=== PATIENT | female | born 1955 | race Two or more races ===

== ENCOUNTER 2018-04-07 19:26 | Emergency (ER) | payer MEDICARE, MEDICAID ==
[~2018-04-07] VITALS: Ht 167.6 cm; Wt 113.0 kg
[2018-04-08] MEDS ORDERED: SODIUM CHLORIDE 0.9% 1,000 ML IV ONE (06:45)
[2018-04-08] MEDS ORDERED: ONDANSETRON HCL 4MG/2ML INJ IV ONE (06:45)
[2018-04-08] MEDS ORDERED: MORPHINE SULFATE 4 MG/ML CPJ (NOT FOR IM USE) IV ONE (07:00)
[2018-04-08 07:16] LABS: CHLORIDE 102 mEq/L (98-107)
[2018-04-08 07:20] LABS: ETHANOL BLOOD < 10 mg/dL
[2018-04-08 07:22] LABS: HEMOGLOBIN. 11.1 g/dL (12.0-16.0); MEAN CORPUSCULAR HEMOGLOBIN 26.4 pg (28.0-32.0); PLATELET 122 x1000/uL (130-400); RED BLOOD CELL COUNT 4.22 mill/uL (4.2-5.4)
[2018-04-08 07:26] LABS: INR 1.1; PROTHROMBIN TIME 11.4 sec (9.1-11.1)
[2018-04-08] MEDS ORDERED: METOPROLOL TARTRATE 5MG/5ML VIAL IV ONE (07:30)
[2018-04-08 07:33] LABS: CLARITY URINE CLOUDY (CLEAR); COLOR URINE YELLOW (YELLOW); KETONES URINE NEGATIVE (NEGATIVE); LEUKOCYTE ESTERASE URINE 3+ (NEGATIVE); NITRITE URINE NEGATIVE (NEGATIVE); OCCULT BLOOD URINE NEGATIVE (NEGATIVE); PROTEIN URINE 1+ (NEGATIVE); SPECIFIC GRAVITY URINE 1.025 (1.005-1.030); UROBILINOGEN URINE 0.2 E.U./dL (0.2-1.0)
[2018-04-08 07:41] VITALS: BP 182/75
[2018-04-08 07:59] LABS: PLATELET ESTIMATE SLIGHTLY DECREASED
[2018-04-08 08:21] LABS: CANNABINOID URINE SCREEN NEGATIVE (NEGATIVE); METHADONE URINE SCREEN NEGATIVE (NEGATIVE); OPIATES URINE SCREEN NEGATIVE (NEGATIVE); PHENCYCLIDINE URINE SCREEN NEGATIVE (NEGATIVE)
[2018-04-08 08:22] LABS: *AMPHETAMINES SCREEN URINE NEGATIVE (NEGATIVE); *BARBITURATES SCREEN URINE NEGATIVE (NEGATIVE); *BENZODIAZEPINES SCREEN URINE NEGATIVE (NEGATIVE); *COCAINE SCREEN URINE NEGATIVE (NEGATIVE)
== END 2018-04-08 08:59 | disposition home or self-care (01) ==
LOC: ER 19:26
DX: N39.0 Urinary tract infection, site not specified (principal); E11.9 Type 2 diabetes mellitus without complications; I11.9 Hypertensive heart disease without heart failure; E78.00 Pure hypercholesterolemia, unspecified; Z95.0 Presence of cardiac pacemaker; Z94.0 Kidney transplant status
CPT/HCPCS: 36415; 80053; 80305; 80320; 81003; 83690; 85025; 85610; 87086; 96361; 96374; 96375; 99283; J2270; J2405; J3490; J7030; G0480

== ENCOUNTER 2018-08-10 09:05 | Emergency (ER) | payer MEDICARE, MEDICAID ==
[~2018-08-10] VITALS: Ht 162.6 cm; Wt 116.0 kg
[2018-08-10] MEDS ORDERED: FUROSEMIDE 40MG/4ML VIAL IV ONE (09:30)
[2018-08-10 09:53] LABS: EOSINOPHILS % 2.9 % (0.0-5.0); HEMATOCRIT. 37.5 % (36.0-48.0); LYMPHOCYTES % 32.8 % (20.0-50.0); MEAN CORPUSCULAR HEMOGLOBIN 26.9 pg (28.0-32.0); MEAN CORPUSCULAR VOLUME 83.8 fL (81.0-99.0); MEAN PLATELET VOLUME 9.6 fl (7.4-10.4); NEUTROPHILS % 54.3 % (40.0-76.0); PLATELET 171 x1000/uL (130-400); RED BLOOD CELL COUNT 4.47 mill/uL (4.2-5.4); RED CELL DISTRIBUTION WIDTH 14.9 % (11.6-14.6)
[2018-08-10 10:01] LABS: CHLORIDE 103 mEq/L (98-107); INR 1.2; PARTIAL THROMBOPLASTIN TIME 32.7 sec (23.4-31.0); PROTHROMBIN TIME 11.9 sec (9.6-11.0)
[2018-08-10] MEDS ORDERED: HYDROCODONE/ACETAMINOPHEN 5/325MG TABLET PO ONE (10:15)
[2018-08-10 10:47] LABS: CLARITY URINE CLEAR (CLEAR); COLOR URINE YELLOW (YELLOW); KETONES URINE NEGATIVE (NEGATIVE); LEUKOCYTE ESTERASE URINE TRACE (NEGATIVE); NITRITE URINE NEGATIVE (NEGATIVE); OCCULT BLOOD URINE 1+ (NEGATIVE); PH URINE 5.5 (4.5-8.0); PROTEIN URINE NEGATIVE (NEGATIVE); SPECIFIC GRAVITY URINE 1.015 (1.005-1.030); UROBILINOGEN URINE 0.2 E.U./dL (0.2-1.0)
[2018-08-10] MEDS ORDERED: POTASSIUM CHLORIDE 20MEQ TABLET SR PO ONE (11:45)
[2018-08-10 13:47] VITALS: BP 141/62
== END 2018-08-10 13:52 | disposition home or self-care (01) ==
LOC: ER 09:15
DX: M54.41 Lumbago with sciatica, right side (principal); R60.0 Localized edema; I11.0 Hypertensive heart disease with heart failure; I50.9 Heart failure, unspecified; I48.91 Unspecified atrial fibrillation; E78.5 Hyperlipidemia, unspecified
CPT/HCPCS: 36415; 71045; 80053; 81003; 83880; 84484; 85025; 85610; 85730; 93005; 93970; 96374; 99284; J1940

== ENCOUNTER 2020-10-21 13:34 | Emergency (ER) | payer OTHER, MEDICAID ==
[~2020-10-21] VITALS: Ht 165.1 cm; Wt 103.0 kg
[2020-10-21 13:39] VITALS: BP 145/74
[2020-10-21] MEDS ORDERED: IBUPROFEN 600MG TABLET PO ONE (14:15)
[2020-10-21] MEDS ORDERED: ACETAMINOPHEN 325MG TABLET PO ONE (14:30)
[2020-10-21] MEDS ORDERED: TOPUD MT (15:04)
== END 2020-10-21 15:16 | disposition home or self-care (01) ==
LOC: ER 13:34
DX: M79.675 Pain in left toe(s) (principal); I11.0 Hypertensive heart disease with heart failure; I50.9 Heart failure, unspecified; I48.91 Unspecified atrial fibrillation; J40 Bronchitis, not specified as acute or chronic; Z94.0 Kidney transplant status; Z95.0 Presence of cardiac pacemaker
CPT/HCPCS: 73660; 81025; 82962; 99283

== ENCOUNTER 2021-06-15 08:43 | Emergency (ER) | payer MEDICARE, MEDICAID ==
[~2021-06-15] VITALS: Ht 165.1 cm; Wt 77.0 kg
[~2021-06-15 08:43] MED LIST: TOPUD MT
[2021-06-15 09:53] LABS: BASOPHILS % 0.7 % (0.0-2.0); EOSINOPHILS % 1.7 % (0.0-5.0); HEMATOCRIT. 37.7 % (36.0-48.0); HEMOGLOBIN. 12.1 g/dL (12.0-16.0); LYMPHOCYTES % 31.5 % (20.0-50.0); MEAN CORPUSCULAR HEMOGLOBIN 26.2 pg (28.0-32.0); MEAN CORPUSCULAR VOLUME 81.5 fL (81.0-99.0); MEAN PLATELET VOLUME 9.3 fl (7.4-10.4); MONOCYTES % 9.1 % (2.0-8.0); PLATELET 185 x1000/uL (130-400); RED BLOOD CELL COUNT 4.62 mill/uL (4.2-5.4); RED CELL DISTRIBUTION WIDTH 14.7 % (11.6-14.6)
[2021-06-15 10:02] LABS: CHLORIDE 104 mEq/L (98-107)
[2021-06-15] MEDS ORDERED: ACETAMINOPHEN 500MG TABLET PO ONE (11:00)
[2021-06-15] MEDS ORDERED: IOHEXOL-350 100 ML BOTTLE ONE (11:13)
[2021-06-15 12:00] VITALS: BP 150/72
[2021-06-15] MEDS ORDERED: TOPUD MT (12:05)
== END 2021-06-15 12:59 | disposition home or self-care (01) ==
LOC: ER 08:43
DX: M54.2 Cervicalgia (principal); M79.89 Other specified soft tissue disorders; I11.0 Hypertensive heart disease with heart failure; I50.9 Heart failure, unspecified; E11.9 Type 2 diabetes mellitus without complications; Z94.0 Kidney transplant status; Z87.448 Personal history of other diseases of urinary system
CPT/HCPCS: 36415; 70496; 70498; 80048; 85025; 99284; Q9967

== ENCOUNTER 2021-08-06 08:55 | Emergency (ER) | payer MEDICARE ==
[~2021-08-06] VITALS: Ht 167.6 cm; Wt 100.0 kg
[2021-08-06] MEDS ORDERED: ACETAMINOPHEN WITH CODEINE 300/30MG TABLET PO STA (09:19)
[2021-08-06 10:12] LABS: CHLORIDE 106 mEq/L (98-107)
[2021-08-06 10:15] LABS: BASOPHILS % 0.4 % (0.0-2.0); EOSINOPHILS % 1.8 % (0.0-5.0); HEMOGLOBIN. 11.1 g/dL (12.0-16.0); LYMPHOCYTES % 45.5 % (20.0-50.0); MEAN CORPUSCULAR HEMOGLOBIN 25.9 pg (28.0-32.0); MEAN CORPUSCULAR VOLUME 81.6 fL (81.0-99.0); NEUTROPHILS % 43.3 % (40.0-76.0); PLATELET 170 x1000/uL (130-400); RED BLOOD CELL COUNT 4.29 mill/uL (4.2-5.4); RED CELL DISTRIBUTION WIDTH 14.7 % (11.6-14.6)
[2021-08-06 10:51] LABS: CLARITY URINE CLEAR (CLEAR); COLOR URINE YELLOW (YELLOW); KETONES URINE NEGATIVE (NEGATIVE); LEUKOCYTE ESTERASE URINE TRACE (NEGATIVE); NITRITE URINE NEGATIVE (NEGATIVE); OCCULT BLOOD URINE TRACE (NEGATIVE); PROTEIN URINE NEGATIVE (NEGATIVE); SPECIFIC GRAVITY URINE 1.016 (1.005-1.030); UROBILINOGEN URINE 0.2 E.U./dL (0.2-1.0)
[2021-08-06] MEDS ORDERED: T3 PO (11:13)
[2021-08-06] MEDS ORDERED: CEPH500C2 MT ×2 (11:13)
[2021-08-06] MEDS ORDERED: CEPH500T MT (11:17)
[2021-08-06 11:29] VITALS: BP 116/59
== END 2021-08-06 11:35 | disposition home or self-care (01) ==
LOC: ER 08:55
DX: N12 Tubulo-interstitial nephritis, not specified as acute or chronic (principal); I48.91 Unspecified atrial fibrillation; I11.0 Hypertensive heart disease with heart failure; I50.9 Heart failure, unspecified; E78.00 Pure hypercholesterolemia, unspecified; Z95.0 Presence of cardiac pacemaker
CPT/HCPCS: 36415; 80053; 81003; 85025; 99283

== ENCOUNTER 2021-12-28 08:57 | Emergency (ER) | payer MEDICARE, MEDICAID ==
[~2021-12-28] VITALS: Ht 167.6 cm; Wt 80.0 kg
[~2021-12-28 08:57] MED LIST changes: +CEPH500T MT; +T3 PO
[2021-12-28 10:24] LABS: BASOPHILS % 0.6 % (0.0-2.0); HEMATOCRIT. 33.6 % (36.0-48.0); HEMOGLOBIN. 10.8 g/dL (12.0-16.0); LYMPHOCYTES % 24.8 % (20.0-50.0); MEAN CORPUSCULAR HEMOGLOBIN 26.1 pg (28.0-32.0); MEAN CORPUSCULAR VOLUME 80.9 fL (81.0-99.0); MEAN PLATELET VOLUME 9.9 fl (7.4-10.4); MONOCYTES % 7.8 % (2.0-8.0); NEUTROPHILS % 62.8 % (40.0-76.0); PLATELET 189 x1000/uL (130-400); RED BLOOD CELL COUNT 4.15 mill/uL (4.2-5.4); RED CELL DISTRIBUTION WIDTH 15.4 % (11.6-14.6)
[2021-12-28 10:33] LABS: INR 1.2; PROTHROMBIN TIME 12.6 sec (9.6-11.0)
[2021-12-28 10:36] LABS: CHLORIDE 105 mEq/L (98-107)
[2021-12-28] MEDS ORDERED: ACET-2708 MT (11:35)
[2021-12-28] MEDS ORDERED: ACETAMINOPHEN 325MG TABLET PO ONE (12:00)
[2021-12-28 12:01] VITALS: BP 150/78
== END 2021-12-28 14:15 | disposition home or self-care (01) ==
LOC: ER 08:57
DX: R04.0 Epistaxis (principal)
CPT/HCPCS: 36415; 71045; 80053; 85025; 99284

== ENCOUNTER 2022-01-24 09:43 | Inpatient (IN) | payer MEDICARE ==
[~2022-01-24] VITALS: Ht 165.1 cm; Wt 100.3 kg
[~2022-01-24 09:43] MED LIST changes: +ACET-2708 MT
[2022-01-24 10:55] LABS: CHLORIDE 99 mEq/L (98-107)
[2022-01-24] MEDS ORDERED: CEFTRIAXONE 1 G PREMIX 50 ML IV ONE (11:45)
[2022-01-24] MEDS ORDERED: AZITHROMYCIN 500MG/250ML 250 ML IV ONE (11:45)
[2022-01-24] MEDS ORDERED: SODIUM CHLORIDE 0.9% 1000ML BAG (SEPSIS BOLUS) IV ONE (11:45)
[2022-01-24 11:58] LABS: HEMATOCRIT. 33.8 % (36.0-48.0); HEMOGLOBIN. 10.7 g/dL (12.0-16.0); MEAN CORPUSCULAR HEMOGLOBIN 25.6 pg (28.0-32.0); MEAN CORPUSCULAR VOLUME 80.8 fL (81.0-99.0); MEAN PLATELET VOLUME 9.2 fl (7.4-10.4); PLATELET 150 x1000/uL (130-400); RED BLOOD CELL COUNT 4.18 mill/uL (4.2-5.4); RED CELL DISTRIBUTION WIDTH 14.5 % (11.6-14.6)
[2022-01-24] MEDS ORDERED: ACETAMINOPHEN 325MG TABLET PO ONE (12:00)
[2022-01-24] MEDS ORDERED: POTASSIUM CHLORIDE 20MEQ TABLET SR PO ONE (12:00)
[2022-01-24 12:01] LABS: BG BASE EXCESS 1.7 mmol/L (-2.0-2.0); BG CARBOXYHEMOGLOBIN 0.4 % (0.5-1.5); BG DEOXYHEMOGLOBIN 16.8 % (0.0-5.0); BG HCO3 ACT 24.5 mmol/L (22.0-26.0); BG OXYGEN SATURATION 83.1 % (92.0-98.5); BG OXYHEMOGLOBIN 82.8 % (94.0-97.0); BG PCO2 32.5 mmHg (35.0-45.0); BG PH 7.495 (7.350-7.450); BG PO2 45.3 mmHg (75.0-100.0); BG SAMPLE SITE RIGHT BRACHIAL; BG TOTAL HEMOGLOBIN 12.2 g/dL (12.0-18.0); BG VENT MODE NASAL CANNULA
[2022-01-24 12:20] LABS: PLATELET ESTIMATE NORMAL
[2022-01-24] MEDS ORDERED: FUROSEMIDE 40MG/4ML VIAL IVP NR (14:15)
[2022-01-24] MEDS ORDERED: ONDANSETRON HCL 4MG/2ML INJ IV PRN (14:15)
[2022-01-24] MEDS ORDERED: PIPERACILLIN/TAZ 3.375G PREMIX 50 ML IV SCH (14:30)
[2022-01-24 18:00] VITALS: BP 122/73
[2022-01-24 20:00] VITALS: BP 141/77
[2022-01-24] MEDS: IPRATROPIUM/ALBUTEROL 0.5-3(2.5)MG/3ML NEB HHN SCH (20:44)
[2022-01-24 20:58] LABS: BG BASE EXCESS 0.6 mmol/L (-2.0-2.0); BG CARBOXYHEMOGLOBIN 0.3 % (0.5-1.5); BG DEOXYHEMOGLOBIN 1.3 % (0.0-5.0); BG FRACTION INSPIRED OXYGEN 100; BG METHEMOGLOBIN 0.4 % (0.0-1.5); BG OXYGEN SATURATION 98.7 % (92.0-98.5); BG PCO2 39.3 mmHg (35.0-45.0); BG PH 7.422 (7.350-7.450); BG PO2 138.6 mmHg (75.0-100.0); BG SAMPLE SITE LEFT RADIAL; BG TOTAL HEMOGLOBIN 11.3 g/dL (12.0-18.0); BG VENT MODE MASK - BIPAP
[2022-01-24 22:00] VITALS: BP 162/78
[2022-01-25] VITALS (12 sets, daily range): BP systolic 119–160; BP diastolic 56–90
[2022-01-25] MEDS: IPRATROPIUM/ALBUTEROL 0.5-3(2.5)MG/3ML NEB HHN SCH ×4 (01:56→21:43)
[2022-01-25] MEDS ORDERED: PIPERACILLIN/TAZOBACTAM 3.375 G in DEXTROSE 5% WATER 50 ML IV SCH (06:00)
[2022-01-25 08:08] LABS: HEMATOCRIT. 34.1 % (36.0-48.0); HEMOGLOBIN. 10.8 g/dL (12.0-16.0); MEAN CORPUSCULAR HEMOGLOBIN 25.4 pg (28.0-32.0); MEAN CORPUSCULAR VOLUME 80.4 fL (81.0-99.0); MEAN PLATELET VOLUME 9.8 fl (7.4-10.4); PLATELET 144 x1000/uL (130-400); RED BLOOD CELL COUNT 4.24 mill/uL (4.2-5.4); RED CELL DISTRIBUTION WIDTH 15.1 % (11.6-14.6)
[2022-01-25] MEDS ORDERED: POTASSIUM CHLORIDE 20MEQ TABLET SR PO NR (09:30)
[2022-01-25] MEDS ORDERED: CALCIUM GLUCONATE 100MG/ML 10ML VIAL IV NR (10:00)
[2022-01-25] MEDS ORDERED: TACR0.5C4 PO (10:02)
[2022-01-25] MEDS ORDERED: LOSA50TA41 MT (10:58)
[2022-01-25] MEDS ORDERED: DIGO125T80 MT (10:58)
[2022-01-25] MEDS ORDERED: ASPI-1406 MT (10:58)
[2022-01-25] MEDS ORDERED: MYCO250C PO (10:58)
[2022-01-25] MEDS ORDERED: METF500T60 PO (10:58)
[2022-01-25] MEDS ORDERED: AMLO10TA80 MT (10:58)
[2022-01-25] MEDS ORDERED: PRED-276 MT (10:58)
[2022-01-25] MEDS ORDERED: ATOR40TA70 MT (10:58)
[2022-01-25] MEDS ORDERED: RIVA20TA MT (10:58)
[2022-01-25] MEDS ORDERED: CALC0.253 PO (10:58)
[2022-01-25] MEDS: AMLODIPINE 10MG TABLET PO SCH (11:16)
[2022-01-25 11:58] LABS: PLATELET ESTIMATE NORMAL
[2022-01-25] MEDS: PIPERACILLIN/TAZOBACTAM 3.375 G in DEXTROSE 5% WATER 50 ML IV SCH ×2 (14:59→22:00)
[2022-01-25] MEDS: RIVAROXABAN 20 MG TABLET PO SCH (17:29)
[2022-01-25] MEDS: ATORVASTATIN CALCIUM 40MG TABLET PO SCH (20:36)
[2022-01-25] MEDS: MYCOPHENOLATE MOFETIL 250MG CAPSULE PO SCH (20:36)
[2022-01-26] VITALS (7 sets, daily range): BP systolic 102–138; BP diastolic 46–74
[2022-01-26] MEDS: ACETAMINOPHEN 325MG TABLET PO PRN ×3 (01:43→17:09)
[2022-01-26] MEDS: IPRATROPIUM/ALBUTEROL 0.5-3(2.5)MG/3ML NEB HHN SCH ×4 (02:57→20:30)
[2022-01-26] MEDS: PIPERACILLIN/TAZOBACTAM 3.375 G in DEXTROSE 5% WATER 50 ML IV SCH ×3 (06:10→22:00)
[2022-01-26 06:43] LABS: HEMATOCRIT. 30.7 % (36.0-48.0); HEMOGLOBIN. 9.7 g/dL (12.0-16.0); MEAN CORPUSCULAR HEMOGLOBIN 25.3 pg (28.0-32.0); MEAN CORPUSCULAR VOLUME 80.3 fL (81.0-99.0); MEAN PLATELET VOLUME 9.7 fl (7.4-10.4); PLATELET 114 x1000/uL (130-400); RED BLOOD CELL COUNT 3.83 mill/uL (4.2-5.4); RED CELL DISTRIBUTION WIDTH 14.9 % (11.6-14.6)
[2022-01-26] MEDS ORDERED: POTASSIUM CHLORIDE 20MEQ TABLET SR PO NR ×2 (08:30→17:45)
[2022-01-26] MEDS ORDERED: POTASSIUM CHLORIDE INJ 40 MEQ in DEXT 5% WATER 250 ML IV ONE (08:30)
[2022-01-26] MEDS: LOSARTAN POTASSIUM 50 MG TABLET PO SCH (09:07)
[2022-01-26] MEDS: AMLODIPINE 10MG TABLET PO SCH (09:07)
[2022-01-26] MEDS: MYCOPHENOLATE MOFETIL 250MG CAPSULE PO SCH ×2 (09:07→20:24)
[2022-01-26] MEDS: KCL 20MEQ/100ML X 2 FOR TOTAL KCL 40MEQ/200ML IV SCH ×2 (09:55→11:21)
[2022-01-26 13:14] LABS: PLATELET ESTIMATE DECREASED
[2022-01-26] MEDS: RIVAROXABAN 20 MG TABLET PO SCH (16:52)
[2022-01-26] MEDS: ATORVASTATIN CALCIUM 40MG TABLET PO SCH (20:24)
[2022-01-27] VITALS (11 sets, daily range): BP systolic 103–163; BP diastolic 49–89
[2022-01-27] MEDS: IPRATROPIUM/ALBUTEROL 0.5-3(2.5)MG/3ML NEB HHN SCH ×4 (00:20→20:20)
[2022-01-27 06:27] LABS: BASOPHILS % 0.3 % (0.0-2.0); EOSINOPHILS % 2.6 % (0.0-5.0); HEMATOCRIT. 25.7 % (36.0-48.0); HEMOGLOBIN. 8.2 g/dL (12.0-16.0); LYMPHOCYTES % 11.8 % (20.0-50.0); MEAN CORPUSCULAR HEMOGLOBIN 25.4 pg (28.0-32.0); MEAN CORPUSCULAR VOLUME 79.5 fL (81.0-99.0); MEAN PLATELET VOLUME 10.1 fl (7.4-10.4); MONOCYTES % 6.5 % (2.0-8.0); NEUTROPHILS % 78.8 % (40.0-76.0); PLATELET 117 x1000/uL (130-400); RED BLOOD CELL COUNT 3.23 mill/uL (4.2-5.4)
[2022-01-27] MEDS: PIPERACILLIN/TAZOBACTAM 3.375 G in DEXTROSE 5% WATER 50 ML IV SCH ×3 (06:40→21:16)
[2022-01-27 07:00] LABS: CHLORIDE 104 mEq/L (98-107)
[2022-01-27] MEDS: LOSARTAN POTASSIUM 50 MG TABLET PO SCH (09:01)
[2022-01-27] MEDS: MYCOPHENOLATE MOFETIL 250MG CAPSULE PO SCH ×2 (09:01→21:17)
[2022-01-27] MEDS: AMLODIPINE 10MG TABLET PO SCH (09:01)
[2022-01-27] MEDS ORDERED: CALCIUM GLUCONATE 1,000 MG in DEXT 5% WATER 90 ML IV ONE (10:15)
[2022-01-27] MEDS: ACETAMINOPHEN 325MG TABLET PO PRN (10:49)
[2022-01-27] MEDS ORDERED: CALCIUM GLUCONATE 1GM PREMIX 50 ML IV NR (11:30)
[2022-01-27] MEDS: PREDNISONE 5MG TABLET PO SCH (11:42)
[2022-01-27] MEDS ORDERED: PREDNISONE 20MG TABLET PO SCH (12:00)
[2022-01-27] MEDS: RIVAROXABAN 20 MG TABLET PO SCH (16:11)
[2022-01-27] MEDS: ATORVASTATIN CALCIUM 40MG TABLET PO SCH (21:17)
[2022-01-27] MEDS ORDERED: BENZONATATE 100MG CAPSULE PO PRN (22:15)
[2022-01-27] MEDS ORDERED: IPRATROPIUM BROMIDE (0.02%) 0.5MG/2.5ML NEB HHN PRN (22:15)
[2022-01-28] VITALS (11 sets, daily range): BP systolic 126–161; BP diastolic 56–79
[2022-01-28] MEDS: IPRATROPIUM/ALBUTEROL 0.5-3(2.5)MG/3ML NEB HHN SCH ×4 (01:51→21:55)
[2022-01-28] MEDS: PIPERACILLIN/TAZOBACTAM 3.375 G in DEXTROSE 5% WATER 50 ML IV SCH ×3 (05:14→21:25)
[2022-01-28 06:29] LABS: BASOPHILS % 0.4 % (0.0-2.0); EOSINOPHILS % 2.5 % (0.0-5.0); HEMATOCRIT. 27.8 % (36.0-48.0); HEMOGLOBIN. 8.9 g/dL (12.0-16.0); LYMPHOCYTES % 21.4 % (20.0-50.0); MEAN CORPUSCULAR HEMOGLOBIN 25.6 pg (28.0-32.0); MEAN CORPUSCULAR VOLUME 79.8 fL (81.0-99.0); MEAN PLATELET VOLUME 9.8 fl (7.4-10.4); MONOCYTES % 10.7 % (2.0-8.0); PLATELET 145 x1000/uL (130-400); RED BLOOD CELL COUNT 3.48 mill/uL (4.2-5.4); RED CELL DISTRIBUTION WIDTH 15.3 % (11.6-14.6)
[2022-01-28] MEDS: PREDNISONE 5MG TABLET PO SCH (09:11)
[2022-01-28] MEDS: MYCOPHENOLATE MOFETIL 250MG CAPSULE PO SCH ×2 (09:11→21:25)
[2022-01-28] MEDS: LOSARTAN POTASSIUM 50 MG TABLET PO SCH (09:11)
[2022-01-28] MEDS: AMLODIPINE 10MG TABLET PO SCH (09:12)
[2022-01-28] MEDS: RIVAROXABAN 20 MG TABLET PO SCH (17:20)
[2022-01-28] MEDS: CALCIUM CARBONATE 500MG TABLET CHEW PO SCH (17:20)
[2022-01-28] MEDS: ATORVASTATIN CALCIUM 40MG TABLET PO SCH (21:25)
[2022-01-29] VITALS (7 sets, daily range): BP systolic 118–133; BP diastolic 60–83
[2022-01-29] MEDS: PIPERACILLIN/TAZOBACTAM 3.375 G in DEXTROSE 5% WATER 50 ML IV SCH ×2 (05:53→14:17)
[2022-01-29] MEDS: MYCOPHENOLATE MOFETIL 250MG CAPSULE PO SCH ×2 (09:36→21:25)
[2022-01-29] MEDS: PREDNISONE 5MG TABLET PO SCH (09:36)
[2022-01-29] MEDS: LOSARTAN POTASSIUM 50 MG TABLET PO SCH (09:36)
[2022-01-29] MEDS: CALCIUM CARBONATE 500MG TABLET CHEW PO SCH ×3 (09:36→17:56)
[2022-01-29] MEDS: AMLODIPINE 10MG TABLET PO SCH (09:36)
[2022-01-29] MEDS: IPRATROPIUM/ALBUTEROL 0.5-3(2.5)MG/3ML NEB HHN SCH ×3 (09:44→21:15)
[2022-01-29] MEDS: RIVAROXABAN 20 MG TABLET PO SCH (16:35)
[2022-01-29] MEDS: ATORVASTATIN CALCIUM 40MG TABLET PO SCH (21:25)
[2022-01-30] VITALS (7 sets, daily range): BP systolic 120–145; BP diastolic 61–76
[2022-01-30] MEDS: IPRATROPIUM/ALBUTEROL 0.5-3(2.5)MG/3ML NEB HHN SCH ×4 (02:15→20:36)
[2022-01-30] MEDS: MYCOPHENOLATE MOFETIL 250MG CAPSULE PO SCH ×2 (09:10→21:55)
[2022-01-30] MEDS: PREDNISONE 5MG TABLET PO SCH (09:11)
[2022-01-30] MEDS: CALCIUM CARBONATE 500MG TABLET CHEW PO SCH ×3 (09:11→17:26)
[2022-01-30] MEDS: LOSARTAN POTASSIUM 50 MG TABLET PO SCH (09:11)
[2022-01-30] MEDS: AMLODIPINE 10MG TABLET PO SCH (09:11)
[2022-01-30] MEDS: PIPERACILLIN/TAZOBACTAM 3.375 G in DEXTROSE 5% WATER 50 ML IV SCH ×2 (13:06→21:55)
[2022-01-30] MEDS: RIVAROXABAN 20 MG TABLET PO SCH (17:27)
[2022-01-30 19:52] LABS: BASOPHILS % 0.3 % (0.0-2.0); EOSINOPHILS % 0.8 % (0.0-5.0); HEMOGLOBIN. 8.7 g/dL (12.0-16.0); LYMPHOCYTES % 11.4 % (20.0-50.0); MEAN CORPUSCULAR HEMOGLOBIN 25.6 pg (28.0-32.0); MEAN CORPUSCULAR VOLUME 79.2 fL (81.0-99.0); MONOCYTES % 13.9 % (2.0-8.0); NEUTROPHILS % 73.6 % (40.0-76.0); PLATELET 237 x1000/uL (130-400)
[2022-01-30 20:01] LABS: CHLORIDE 100 mEq/L (98-107)
[2022-01-30] MEDS: ATORVASTATIN CALCIUM 40MG TABLET PO SCH (21:55)
[2022-01-31] MEDS: IPRATROPIUM/ALBUTEROL 0.5-3(2.5)MG/3ML NEB HHN SCH ×3 (02:14→13:57)
[2022-01-31] MEDS: PIPERACILLIN/TAZOBACTAM 3.375 G in DEXTROSE 5% WATER 50 ML IV SCH ×2 (06:38→13:19)
[2022-01-31 08:00] VITALS: BP 128/68
[2022-01-31] MEDS: MYCOPHENOLATE MOFETIL 250MG CAPSULE PO SCH (09:52)
[2022-01-31] MEDS: LOSARTAN POTASSIUM 50 MG TABLET PO SCH (09:52)
[2022-01-31] MEDS: CALCIUM CARBONATE 500MG TABLET CHEW PO SCH ×2 (09:52→13:19)
[2022-01-31] MEDS: PREDNISONE 5MG TABLET PO SCH (09:52)
[2022-01-31] MEDS: AMLODIPINE 10MG TABLET PO SCH (09:53)
[2022-01-31 12:00] VITALS: BP 132/76
[2022-01-31 13:31] VITALS: BP 137/73
[2022-01-31 16:00] VITALS: BP 141/72
[2022-01-31] MEDS: RIVAROXABAN 20 MG TABLET PO SCH (16:31)
== END 2022-01-31 19:09 | DRG 871 ==
LOC: ER 09:43 → EDBEDREQTM 13:44 → EDBEDREQSVC 13:44 → EDBEDREQ 13:44 → 5EST 13:44 → ENRESERV 16:11
PROVIDERS: ADMIT Internal Medicine; ATTEND Internal Medicine
PROC: 5A09357 Assistance with Respiratory Ventilation, Less than 24 Consecutive Hours, Continuous Positive Airway Pressure (ICD-10-PCS; principal; 2022-01-24)
PROC: 5A09357 Assistance with Respiratory Ventilation, Less than 24 Consecutive Hours, Continuous Positive Airway Pressure (ICD-10-PCS; 2022-01-27)
DX: A41.9 Sepsis, unspecified organism (principal); J18.9 Pneumonia, unspecified organism; J96.01 Acute respiratory failure with hypoxia; E87.1 Hypo-osmolality and hyponatremia; E44.0 Moderate protein-calorie malnutrition; N17.9 Acute kidney failure, unspecified; D84.9 Immunodeficiency, unspecified; Z94.0 Kidney transplant status; E87.20 Acidosis, unspecified; R65.20 Severe sepsis without septic shock; E87.6 Hypokalemia; D64.9 Anemia, unspecified; E66.9 Obesity, unspecified; E11.9 Type 2 diabetes mellitus without complications; I11.0 Hypertensive heart disease with heart failure; I50.9 Heart failure, unspecified; E78.00 Pure hypercholesterolemia, unspecified; M19.90 Unspecified osteoarthritis, unspecified site; Z20.822 Contact with and (suspected) exposure to COVID-19; I48.91 Unspecified atrial fibrillation; Z68.36 Body mass index [BMI] 36.0-36.9, adult
CPT/HCPCS: 36415; 36600; 71045; 80048; 80053; 82375; 82805; 83605; 83880; 84132; 84145; 84484; 85025; 87070; 87426; 93005; 93306; 94640; 94660; 97116; 97162; 97530; 99285; C9803; J0456; J0610; J0696; J1940; J2405; J2543; J3480; J7030; J7060; J7512; J7517

== ENCOUNTER 2022-05-11 11:29 | Emergency (ER) | payer MEDICARE, MEDICAID ==
[~2022-05-11] VITALS: Ht 167.6 cm; Wt 102.0 kg
[~2022-05-11 11:29] MED LIST changes: +AMLO10TA80 MT; +ASPI-1406 MT; +ATOR40TA70 MT; +CALC0.253 PO; +DIGO125T80 MT; +LOSA50TA41 MT; +METF500T60 PO; +MYCO250C PO; +PRED-855 MT; +RIVA20TA MT; +TACR0.5C4 PO
[2022-05-11 13:20] LABS: BASOPHILS % 0.4 % (0.0-2.0); HEMATOCRIT. 34.1 % (36.0-48.0); HEMOGLOBIN. 11.1 g/dL (12.0-16.0); LYMPHOCYTES % 17.7 % (20.0-50.0); MEAN CORPUSCULAR HEMOGLOBIN 25.1 pg (28.0-32.0); MEAN CORPUSCULAR VOLUME 77.4 fL (81.0-99.0); MEAN PLATELET VOLUME 8.9 fl (7.4-10.4); MONOCYTES % 8.6 % (2.0-8.0); NEUTROPHILS % 70.3 % (40.0-76.0); PLATELET 202 x1000/uL (130-400); RED BLOOD CELL COUNT 4.41 mill/uL (4.2-5.4); RED CELL DISTRIBUTION WIDTH 15.7 % (11.6-14.6)
[2022-05-11 13:22] LABS: CHLORIDE 99 mEq/L (98-107)
[2022-05-11 13:27] LABS: D-DIMER 0.25 mg/L FEU (<0.50); INR 1.2; PROTHROMBIN TIME 12.7 sec (9.6-11.0)
[2022-05-11 13:34] LABS: BETA HYDROXYBUTYRATE 0.1 mMol/L (0.0-0.3)
[2022-05-11] MEDS ORDERED: SODIUM CHLORIDE 0.9% 1,000 ML IV ONE (14:15)
[2022-05-11] MEDS ORDERED: MAGNESIUM 2 G PREMIX 50 ML IV NR (14:45)
[2022-05-11] MEDS ORDERED: POTASSIUM CHLORIDE 20MEQ TABLET SR PO NR (14:45)
[2022-05-11 16:10] VITALS: BP 146/71
== END 2022-05-11 16:58 | disposition home or self-care (01) ==
LOC: ER 11:29
DX: R06.02 Shortness of breath (principal); I48.91 Unspecified atrial fibrillation; I11.0 Hypertensive heart disease with heart failure; I50.9 Heart failure, unspecified; E11.9 Type 2 diabetes mellitus without complications; Z95.0 Presence of cardiac pacemaker; Z20.822 Contact with and (suspected) exposure to COVID-19
CPT/HCPCS: 36415; 71045; 80053; 82010; 83605; 83735; 83880; 84145; 84484; 85025; 85379; 85610; 87426; 87804; 93005; 96365; 99285; C9803; J3475

== ENCOUNTER 2022-05-31 10:21 | Emergency (ER) | payer MEDICARE, MEDICAID ==
[~2022-05-31] VITALS: Ht 165.1 cm; Wt 104.0 kg
[2022-05-31 10:41] VITALS: BP 136/70
[2022-05-31 11:29] LABS: BASOPHILS % 0.8 % (0.0-2.0); EOSINOPHILS % 6.8 % (0.0-5.0); HEMATOCRIT. 34.3 % (36.0-48.0); HEMOGLOBIN. 11.2 g/dL (12.0-16.0); LYMPHOCYTES % 23.9 % (20.0-50.0); MEAN CORPUSCULAR HEMOGLOBIN 25.4 pg (28.0-32.0); MEAN CORPUSCULAR VOLUME 77.9 fL (81.0-99.0); MEAN PLATELET VOLUME 8.5 fl (7.4-10.4); MONOCYTES % 13.6 % (2.0-8.0); NEUTROPHILS % 54.9 % (40.0-76.0); PLATELET 201 x1000/uL (130-400); RED BLOOD CELL COUNT 4.41 mill/uL (4.2-5.4); RED CELL DISTRIBUTION WIDTH 15.4 % (11.6-14.6)
[2022-05-31 11:35] LABS: CHLORIDE 100 mEq/L (98-107)
== END 2022-05-31 17:04 | disposition home or self-care (01) ==
LOC: ER 10:21
DX: E83.51 Hypocalcemia (principal)
CPT/HCPCS: 36415; 71045; 80053; 85025; 93005; 99285

== ENCOUNTER 2023-02-14 12:27 | Emergency (ER) | payer MEDICARE, MEDICAID ==
[~2023-02-14] VITALS: Ht 167.6 cm; Wt 86.0 kg
[~2023-02-14 12:27] MED LIST changes: -ACET-2708 MT; +ALEN70TA79 PO; +BEMP180T PO; -CALC0.253 PO; +CARV3.1242 PO; -CEPH500T MT; -DIGO125T80 MT; +FURO20TA4 PO; -LOSA50TA41 MT; +METF-414 PO; -METF500T60 PO; -RIVA20TA MT; -T3 PO; -TOPUD MT
[2023-02-14 12:28] VITALS: BP 171/86; PULSE 117; RESP 20; TEMP 98.2; O2SAT 99
[2023-02-14] MEDS ORDERED: IBUP-2029 MT ×2 (14:26)
[2023-02-14] MEDS ORDERED: METH-653 MT (14:26)
[2023-02-14] MEDS ORDERED: TRAM50TA3 MT (14:29)
== END 2023-02-14 16:29 | disposition home or self-care (01) ==
LOC: ER 12:33
DX: S76.012A Strain of muscle, fascia and tendon of left hip, initial encounter (principal); I73.9 Peripheral vascular disease, unspecified; E78.00 Pure hypercholesterolemia, unspecified; E11.9 Type 2 diabetes mellitus without complications; I11.0 Hypertensive heart disease with heart failure; I50.9 Heart failure, unspecified; Z79.899 Other long term (current) drug therapy; Z98.890 Other specified postprocedural states; X58.XXXA Exposure to other specified factors, initial encounter; Y93.89 Activity, other specified; Y92.89 Other specified places as the place of occurrence of the external cause; Y99.8 Other external cause status
CPT/HCPCS: 73502; 99283

== ENCOUNTER 2023-02-28 09:57 | Emergency (ER) | payer MEDICARE, MEDICAID ==
[~2023-02-28] VITALS: Ht 167.6 cm; Wt 86.0 kg
[~2023-02-28 09:57] MED LIST changes: +METH-653 MT; +TRAM50TA3 MT
[2023-02-28 10:00] VITALS: BP 203/122; PULSE 112; RESP 20; O2SAT 98
[2023-02-28 11:23] LABS: BASOPHILS % 0.4 % (0.0-2.0); EOSINOPHILS % 2.2 % (0.0-5.0); HEMATOCRIT. 38.1 % (36.0-48.0); LYMPHOCYTES % 17.9 % (20.0-50.0); MEAN CORPUSCULAR HEMOGLOBIN 25.6 pg (28.0-32.0); MEAN CORPUSCULAR HGB CONC 31.5 g/dL (31.0-37.0); MEAN CORPUSCULAR VOLUME 81.2 fL (81.0-99.0); MEAN PLATELET VOLUME 8.7 fl (7.4-10.4); MONOCYTES % 8.2 % (2.0-8.0); NEUTROPHILS % 71.3 % (40.0-76.0); PLATELET 221 x1000/uL (130-400); RED CELL DISTRIBUTION WIDTH 15.3 % (11.6-14.6); WHITE BLOOD COUNT 10.2 x1000/uL (4.5-11.0)
[2023-02-28 11:25] LABS: CLARITY URINE CLEAR (CLEAR); COLOR URINE YELLOW (YELLOW); GLUCOSE URINE NEGATIVE (NEGATIVE); KETONES URINE NEGATIVE (NEGATIVE); LEUKOCYTE ESTERASE URINE TRACE (NEGATIVE); NITRITE URINE NEGATIVE (NEGATIVE); OCCULT BLOOD URINE TRACE (NEGATIVE); PROTEIN URINE TRACE (NEGATIVE); SPECIFIC GRAVITY URINE 1.018 (1.005-1.030); UROBILINOGEN URINE 0.2 E.U./dL (0.2-1.0)
[2023-02-28 11:36] LABS: ALANINE AMINOTRANSFERASE < 7 IU/L (10-49); ALBUMIN 4.1 g/dL (3.2-4.8); ASPARTATE AMINOTRANSFERASE 13 IU/L (<34); BILIRUBIN TOTAL 0.6 mg/dL (0.1-1.0); CALCIUM 8.2 mg/dL (8.7-10.4); CARBON DIOXIDE 25 mEq/L (21-32); CHLORIDE 107 mEq/L (98-107); CREATININE 1.1 mg/dL (0.6-1.0); GLUCOSE 87 mg/dL (70-105); POTASSIUM 3.8 mEq/L (3.5-5.1); PROTEIN TOTAL 7.6 g/dL (6.0-8.3); SODIUM 139 mEq/L (136-145); UREA NITROGEN BLOOD 16 mg/dL (9-23)
[2023-02-28 11:58] LABS: BACTERIA URINE TRACE; SQUAMOUS EPITHELIAL CELL URINE 1+ /lpf (RARE/1+)
[2023-02-28 11:59] LABS: RBC URINE 0-2 /hpf (0-2); WBC URINE 0-2 /hpf (0-2)
[2023-02-28 12:30] VITALS: TEMP 98.6
[2023-02-28] MEDS ORDERED: ACETAMINOPHEN 500MG TABLET PO ONE (12:30)
== END 2023-02-28 13:56 | disposition home or self-care (01) ==
LOC: ER 09:57
DX: M79.652 Pain in left thigh (principal); E11.9 Type 2 diabetes mellitus without complications; I11.0 Hypertensive heart disease with heart failure; I50.9 Heart failure, unspecified; I48.91 Unspecified atrial fibrillation; Z79.899 Other long term (current) drug therapy; Z79.82 Long term (current) use of aspirin; E78.00 Pure hypercholesterolemia, unspecified
CPT/HCPCS: 36415; 80053; 81003; 85025; 99283

== ENCOUNTER 2023-04-04 09:36 | Emergency (ER) | payer MEDICARE, MEDICAID ==
[~2023-04-04] VITALS: Ht 157.5 cm; Wt 100.0 kg
[2023-04-04 09:47] VITALS: O2SAT 100
[2023-04-04 10:25] LABS: BASOPHILS % 0.4 % (0.0-2.0); EOSINOPHILS % 2.7 % (0.0-5.0); HEMOGLOBIN. 12.8 g/dL (12.0-16.0); LYMPHOCYTES % 33.4 % (20.0-50.0); MEAN CORPUSCULAR HEMOGLOBIN 26.3 pg (28.0-32.0); MEAN CORPUSCULAR HGB CONC 32.8 g/dL (31.0-37.0); MEAN CORPUSCULAR VOLUME 80.2 fL (81.0-99.0); MEAN PLATELET VOLUME 8.6 fl (7.4-10.4); MONOCYTES % 8.6 % (2.0-8.0); NEUTROPHILS % 54.9 % (40.0-76.0); PLATELET 221 x1000/uL (130-400); RED BLOOD CELL COUNT 4.86 mill/uL (4.2-5.4); RED CELL DISTRIBUTION WIDTH 14.8 % (11.6-14.6); WHITE BLOOD COUNT 7.9 x1000/uL (4.5-11.0)
[2023-04-04 10:34] LABS: ALANINE AMINOTRANSFERASE < 7 IU/L (10-49); ALBUMIN 4.5 g/dL (3.2-4.8); ASPARTATE AMINOTRANSFERASE 13 IU/L (<34); BILIRUBIN TOTAL 0.7 mg/dL (0.1-1.0); CALCIUM 9.1 mg/dL (8.7-10.4); CARBON DIOXIDE 30 mEq/L (21-32); CHLORIDE 102 mEq/L (98-107); CREATININE 1.2 mg/dL (0.6-1.0); GLUCOSE 102 mg/dL (70-105); POTASSIUM 3.7 mEq/L (3.5-5.1); PROTEIN TOTAL 7.3 g/dL (6.0-8.3); SODIUM 138 mEq/L (136-145); UREA NITROGEN BLOOD 16 mg/dL (9-23)
[2023-04-04 11:05] LABS: CLARITY URINE CLOUDY (CLEAR); COLOR URINE YELLOW (YELLOW); GLUCOSE URINE NEGATIVE (NEGATIVE); KETONES URINE TRACE (NEGATIVE); LEUKOCYTE ESTERASE URINE 3+ (NEGATIVE); NITRITE URINE NEGATIVE (NEGATIVE); OCCULT BLOOD URINE 1+ (NEGATIVE); PH URINE 5.5 (4.5-8.0); PROTEIN URINE 1+ (NEGATIVE); SPECIFIC GRAVITY URINE 1.022 (1.005-1.030); UROBILINOGEN URINE 0.2 E.U./dL (0.2-1.0)
[2023-04-04 11:53] LABS: SQUAMOUS EPITHELIAL CELL URINE 3+ /lpf (RARE/1+)
[2023-04-04 11:54] LABS: WBC URINE 25-50 /hpf (0-2)
[2023-04-04 11:55] LABS: BACTERIA URINE 4+
[2023-04-04] MEDS: ONDANSETRON HCL 4MG/2ML INJ IV STA (14:22)
[2023-04-04] MEDS: MORPHINE SULFATE 2 MG/ML CPJ (NOT FOR IM USE) IV ONE (14:23)
[2023-04-04] MEDS: SODIUM CHLORIDE 0.9% 1,000 ML IV ONE (14:23)
[2023-04-04 14:24] LABS: BASOPHILS % 0.4 % (0.0-2.0); EOSINOPHILS % 0.6 % (0.0-5.0); HEMATOCRIT. 37.9 % (36.0-48.0); HEMOGLOBIN. 12.1 g/dL (12.0-16.0); LYMPHOCYTES % 19.4 % (20.0-50.0); MEAN CORPUSCULAR HEMOGLOBIN 25.8 pg (28.0-32.0); MEAN CORPUSCULAR HGB CONC 31.9 g/dL (31.0-37.0); MEAN CORPUSCULAR VOLUME 80.8 fL (81.0-99.0); MEAN PLATELET VOLUME 8.8 fl (7.4-10.4); MONOCYTES % 4.2 % (2.0-8.0); NEUTROPHILS % 75.4 % (40.0-76.0); PLATELET 200 x1000/uL (130-400); RED BLOOD CELL COUNT 4.69 mill/uL (4.2-5.4); WHITE BLOOD COUNT 7.9 x1000/uL (4.5-11.0)
[2023-04-04 14:37] LABS: ALANINE AMINOTRANSFERASE < 7 IU/L (10-49); ALBUMIN 4.1 g/dL (3.2-4.8); ASPARTATE AMINOTRANSFERASE 12 IU/L (<34); BILIRUBIN TOTAL 0.6 mg/dL (0.1-1.0); CALCIUM 8.8 mg/dL (8.7-10.4); CARBON DIOXIDE 29 mEq/L (21-32); CHLORIDE 102 mEq/L (98-107); CREATININE 1.2 mg/dL (0.6-1.0); GLUCOSE 117 mg/dL (70-105); POTASSIUM 4.1 mEq/L (3.5-5.1); PROTEIN TOTAL 6.8 g/dL (6.0-8.3); SODIUM 137 mEq/L (136-145); UREA NITROGEN BLOOD 17 mg/dL (9-23)
[2023-04-04 15:24] LABS: TROPONIN I HIGH SENSITIVITY < 4 ng/L (3.0-34)
[2023-04-04] MEDS: CEFTRIAXONE 1GM PREMIX 50 ML IV ONE (16:55)
[2023-04-04] MEDS ORDERED: CEFD300C3 MT (16:58)
[2023-04-04] MEDS ORDERED: ONDA4TAB50 MT (16:58)
[2023-04-04] MEDS ORDERED: TOPUD MT (16:58)
[2023-04-04 17:44] VITALS: BP 145/72; PULSE 86; RESP 18; TEMP 98.6
== END 2023-04-04 17:47 | disposition home or self-care (01) ==
LOC: ER 10:54
DX: N12 Tubulo-interstitial nephritis, not specified as acute or chronic (principal); E78.00 Pure hypercholesterolemia, unspecified; E11.9 Type 2 diabetes mellitus without complications; I11.0 Hypertensive heart disease with heart failure; I50.9 Heart failure, unspecified; Z79.899 Other long term (current) drug therapy; Z98.890 Other specified postprocedural states
CPT/HCPCS: 99285; 74176; 96365; 96375; 96361; 81003; 83605; 83690; 85025; 85610; 87086; 84484; 36415; 80053; J0696; J2405; J2270; J7030

== ENCOUNTER 2023-04-06 08:47 | Emergency (ER) | payer MEDICAID, MEDICARE ==
[~2023-04-06] VITALS: Ht 167.6 cm; Wt 91.0 kg
[~2023-04-06 08:47] MED LIST changes: +CEFD300C3 MT; +ONDA4TAB50 MT; +TOPUD MT
[2023-04-06 09:08] VITALS: O2SAT 98
[2023-04-06] MEDS: HYDROCODONE/ACETAMINOPHEN 5/325MG TABLET PO ONE (09:30)
[2023-04-06] MEDS ORDERED: VALA10002 MT (09:37)
[2023-04-06] MEDS ORDERED: P50 MT (09:37)
[2023-04-06] MEDS ORDERED: HYDR-4001 MT (09:37)
[2023-04-06 10:06] VITALS: BP 150/84; PULSE 97; RESP 20; TEMP 98.8
== END 2023-04-06 10:27 | disposition home or self-care (01) ==
LOC: ER 08:47
DX: B02.9 Zoster without complications (principal); E11.9 Type 2 diabetes mellitus without complications; E78.00 Pure hypercholesterolemia, unspecified; I11.0 Hypertensive heart disease with heart failure; I50.9 Heart failure, unspecified; I48.91 Unspecified atrial fibrillation
CPT/HCPCS: 99283

== ENCOUNTER 2023-04-23 10:17 | Emergency (ER) | payer MEDICARE ==
[~2023-04-23] VITALS: Ht 167.6 cm; Wt 81.0 kg
[~2023-04-23 10:17] MED LIST changes: +HYDR-4001 MT; +P50 MT; +VALA10002 MT
[2023-04-23 10:25] VITALS: BP 160/99; PULSE 120; RESP 20; TEMP 98.5; O2SAT 95
[2023-04-23 11:23] LABS: CALCIUM 8.8 mg/dL (8.7-10.4); CREATININE 1.4 mg/dL (0.6-1.0); POTASSIUM 3.5 mEq/L (3.5-5.1)
[2023-04-23] MEDS ORDERED: LIDO700A15 TP (12:15)
== END 2023-04-23 14:36 | disposition home or self-care (01) ==
LOC: ER 10:17
DX: B02.9 Zoster without complications (principal); Z94.0 Kidney transplant status; E11.9 Type 2 diabetes mellitus without complications; I50.9 Heart failure, unspecified; I13.0 Hypertensive heart and chronic kidney disease with heart failure and stage 1 through stage 4 chronic kidney disease, or unspecified chronic kidney disease; N18.6 End stage renal disease; E78.00 Pure hypercholesterolemia, unspecified; Z98.890 Other specified postprocedural states
CPT/HCPCS: 36415; 80048; 99283

== ENCOUNTER 2023-07-11 11:39 | Emergency (ER) | payer MEDICARE, MEDICAID ==
[~2023-07-11] VITALS: Ht 167.6 cm; Wt 107.0 kg
[~2023-07-11 11:39] MED LIST changes: +LIDO700A15 TP
[2023-07-11 11:49] VITALS: O2SAT 98
[2023-07-11 14:38] LABS: CLARITY URINE CLEAR (CLEAR); COLOR URINE YELLOW (YELLOW); GLUCOSE URINE NEGATIVE (NEGATIVE); KETONES URINE NEGATIVE (NEGATIVE); LEUKOCYTE ESTERASE URINE TRACE (NEGATIVE); NITRITE URINE NEGATIVE (NEGATIVE); OCCULT BLOOD URINE TRACE (NEGATIVE); PH URINE 5.5 (4.5-8.0); PROTEIN URINE NEGATIVE (NEGATIVE); UROBILINOGEN URINE 0.2 E.U./dL (0.2-1.0)
[2023-07-11 15:08] LABS: RBC URINE 0-2 /hpf (0-2); SQUAMOUS EPITHELIAL CELL URINE 2+ /lpf (RARE/1+); WBC URINE 0-2 /hpf (0-2)
[2023-07-11 15:09] LABS: BACTERIA URINE 1+
[2023-07-11] MEDS ORDERED: LIDO700A15 TP (15:16)
[2023-07-11 15:29] VITALS: BP 142/78; PULSE 100; RESP 19; TEMP 98
== END 2023-07-11 16:05 | disposition home or self-care (01) ==
LOC: ER 11:39
DX: B02.29 Other postherpetic nervous system involvement (principal); E78.00 Pure hypercholesterolemia, unspecified; E11.9 Type 2 diabetes mellitus without complications; I11.0 Hypertensive heart disease with heart failure; I50.9 Heart failure, unspecified; Z79.899 Other long term (current) drug therapy; Z79.82 Long term (current) use of aspirin; Z98.890 Other specified postprocedural states
CPT/HCPCS: 81003; 99283

== ENCOUNTER 2023-11-05 13:00 | Emergency (ER) | payer MEDICARE, MEDICAID ==
[~2023-11-05] VITALS: Ht 167.6 cm; Wt 105.0 kg
[2023-11-05 13:15] VITALS: BP 137/86; PULSE 107; RESP 16; TEMP 98.3; O2SAT 98
[2023-11-05] MEDS ORDERED: AMOX1TAB16 MT (13:24)
[2023-11-05] MEDS ORDERED: AZIT250T12 MT (13:24)
== END 2023-11-05 16:01 | disposition home or self-care (01) ==
LOC: ER 14:33
DX: J06.9 Acute upper respiratory infection, unspecified (principal); I13.0 Hypertensive heart and chronic kidney disease with heart failure and stage 1 through stage 4 chronic kidney disease, or unspecified chronic kidney disease; E11.22 Type 2 diabetes mellitus with diabetic chronic kidney disease; N18.9 Chronic kidney disease, unspecified; D84.9 Immunodeficiency, unspecified; E11.9 Type 2 diabetes mellitus without complications; E78.00 Pure hypercholesterolemia, unspecified; I50.9 Heart failure, unspecified; I48.91 Unspecified atrial fibrillation; Z79.899 Other long term (current) drug therapy; I11.0 Hypertensive heart disease with heart failure; Z95.0 Presence of cardiac pacemaker; Z79.82 Long term (current) use of aspirin; Z79.624 Long term (current) use of inhibitors of nucleotide synthesis; Z79.84 Long term (current) use of oral hypoglycemic drugs
CPT/HCPCS: 99283

== ENCOUNTER 2023-11-19 12:20 | Emergency (ER) | payer MEDICARE, MEDICAID ==
[~2023-11-19] VITALS: Ht 170.2 cm; Wt 105.0 kg
[~2023-11-19 12:20] MED LIST changes: +AMOX1TAB16 MT; +AZIT250T12 MT
[2023-11-19 12:22] VITALS: O2SAT 98
[2023-11-19 12:32] VITALS: BP 137/81; PULSE 109; RESP 18; TEMP 98.2; O2SAT 95
== END 2023-11-19 15:00 | disposition home or self-care (01) ==
LOC: ER 12:20
DX: M25.552 Pain in left hip (principal); I48.91 Unspecified atrial fibrillation; I50.9 Heart failure, unspecified; I11.0 Hypertensive heart disease with heart failure; E78.00 Pure hypercholesterolemia, unspecified; E11.9 Type 2 diabetes mellitus without complications; Z79.899 Other long term (current) drug therapy; Z94.0 Kidney transplant status; Z99.2 Dependence on renal dialysis
CPT/HCPCS: 99281

== ENCOUNTER 2024-01-01 10:00 | Emergency (ER) | payer MEDICARE, MEDICAID ==
[~2024-01-01] VITALS: Ht 165.1 cm; Wt 107.0 kg
[~2024-01-01 10:00] MED LIST changes: -AMOX1TAB16 MT; -AZIT250T12 MT; +CALC0.253 PO; +CALC500T35 PO; -CEFD300C3 MT; +LOSA50TA41 PO; -P50 MT
[2024-01-01 10:03] VITALS: O2SAT 97
[2024-01-01 10:14] VITALS: BP 128/75; PULSE 82; RESP 16; TEMP 98.7; O2SAT 99
[2024-01-01] MEDS: LIDOCAINE 5% PATCH TOP SCH (11:58)
[2024-01-01] MEDS: ACETAMINOPHEN WITH CODEINE 300/30MG TABLET PO ONE (11:58)
[2024-01-01 12:13] LABS: BASOPHILS % 0.3 % (0.0-2.0); EOSINOPHILS % 4.7 % (0.0-5.0); HEMATOCRIT. 37.5 % (36.0-48.0); HEMOGLOBIN. 11.8 g/dL (12.0-16.0); MEAN CORPUSCULAR HEMOGLOBIN 26.2 pg (28.0-32.0); MEAN CORPUSCULAR HGB CONC 31.6 g/dL (31.0-37.0); MEAN CORPUSCULAR VOLUME 83.1 fL (81.0-99.0); MEAN PLATELET VOLUME 8.9 fl (7.4-10.4); MONOCYTES % 9.7 % (2.0-8.0); NEUTROPHILS % 65.3 % (40.0-76.0); PLATELET 217 x1000/uL (130-400); RED BLOOD CELL COUNT 4.51 mill/uL (4.2-5.4); RED CELL DISTRIBUTION WIDTH 15.7 % (11.6-14.6); WHITE BLOOD COUNT 10.5 x1000/uL (4.5-11.0)
[2024-01-01 12:23] LABS: CALCIUM 9.2 mg/dL (8.7-10.4)
[2024-01-01 12:27] LABS: CREATININE 1.4 mg/dL (0.6-1.0)
[2024-01-01] MEDS ORDERED: LIDO1ADH7 TP (13:57)
[2024-01-01 14:59] LABS: CLARITY URINE CLEAR (CLEAR); COLOR URINE YELLOW (YELLOW); GLUCOSE URINE NEGATIVE (NEGATIVE); KETONES URINE NEGATIVE (NEGATIVE); LEUKOCYTE ESTERASE URINE NEGATIVE (NEGATIVE); NITRITE URINE NEGATIVE (NEGATIVE); OCCULT BLOOD URINE NEGATIVE (NEGATIVE); PH URINE 5.5 (4.5-8.0); PROTEIN URINE NEGATIVE (NEGATIVE); SPECIFIC GRAVITY URINE 1.019 (1.005-1.030); UROBILINOGEN URINE 0.2 E.U./dL (0.2-1.0)
== END 2024-01-01 14:43 | disposition home or self-care (01) ==
LOC: ER 10:00
DX: S39.012A Strain of muscle, fascia and tendon of lower back, initial encounter (principal); E11.9 Type 2 diabetes mellitus without complications; I10 Essential (primary) hypertension; Z98.51 Tubal ligation status; Z79.899 Other long term (current) drug therapy; Z94.0 Kidney transplant status; X58.XXXA Exposure to other specified factors, initial encounter; Y93.89 Activity, other specified; Y92.89 Other specified places as the place of occurrence of the external cause; Y99.8 Other external cause status
CPT/HCPCS: 36415; 73502; 80048; 81003; 85025; 99284

== ENCOUNTER 2024-02-27 09:20 | Emergency (ER) | payer MEDICAID, MEDICARE ==
[~2024-02-27] VITALS: Ht 162.6 cm; Wt 108.0 kg
[~2024-02-27 09:20] MED LIST changes: +LIDO1ADH7 TP
[2024-02-27 09:24] VITALS: O2SAT 98
[2024-02-27 09:28] VITALS: BP 147/82; TEMP 98.5; O2SAT 99
[2024-02-27 10:57] LABS: BASOPHILS % 0.7 % (0.0-2.0); EOSINOPHILS % 6.5 % (0.0-5.0); HEMATOCRIT. 37.1 % (36.0-48.0); HEMOGLOBIN. 11.7 g/dL (12.0-16.0); LYMPHOCYTES % 13.8 % (20.0-50.0); MEAN CORPUSCULAR HEMOGLOBIN 26.4 pg (28.0-32.0); MEAN CORPUSCULAR HGB CONC 31.6 g/dL (31.0-37.0); MEAN CORPUSCULAR VOLUME 83.4 fL (81.0-99.0); MEAN PLATELET VOLUME 9.7 fl (7.4-10.4); MONOCYTES % 10.4 % (2.0-8.0); NEUTROPHILS % 68.6 % (40.0-76.0); PLATELET 210 x1000/uL (130-400); RED BLOOD CELL COUNT 4.45 mill/uL (4.2-5.4); RED CELL DISTRIBUTION WIDTH 14.6 % (11.6-14.6); WHITE BLOOD COUNT 11.2 x1000/uL (4.5-11.0)
[2024-02-27 11:09] LABS: POTASSIUM 3.8 mEq/L (3.5-5.1)
[2024-02-27 11:15] LABS: CREATININE 1.5 mg/dL (0.6-1.0)
[2024-02-27] MEDS: PREDNISONE 20MG TABLET PO ONE (14:11)
[2024-02-27 14:20] VITALS: PULSE 96; RESP 20
[2024-02-27] MEDS: IPRATROPIUM/ALBUTEROL 0.5-3(2.5)MG/3ML NEB HHN ONE (14:20)
[2024-02-27] MEDS ORDERED: ALBU90AE INH (16:06)
[2024-02-27] MEDS ORDERED: P50 MT (16:06)
[2024-02-27] MEDS ORDERED: DEXT30SU17 MT (16:06)
== END 2024-02-27 17:39 | disposition home or self-care (01) ==
LOC: ER 09:34
DX: R05.9 Cough, unspecified (principal); I48.91 Unspecified atrial fibrillation; N28.9 Disorder of kidney and ureter, unspecified; E11.9 Type 2 diabetes mellitus without complications; I10 Essential (primary) hypertension; Z20.822 Contact with and (suspected) exposure to COVID-19; Z79.899 Other long term (current) drug therapy; Z79.82 Long term (current) use of aspirin; Z98.890 Other specified postprocedural states; Z98.51 Tubal ligation status
CPT/HCPCS: 99285; 71045; 87426; 80048; 83880; 85025; 87420; 87804 ×2; 36415; 94640; 93005; J7512